=== PATIENT | female | born 1930 | race Caucasian/White ===

== ENCOUNTER → 2016-07-06 | Outpatient (CLI) | payer MEDICARE ==
[~2016-07-06] MED LIST: ATOR40TA2 PO; CITA10TA4; CLPD75T; FURO20TA4 PO; LOSA1TAB69 PO; METO25TA60 PO; MTP50T PO; TOLT2TAB5 PO; TOLTA4 PO
[2016-07-06 15:12] LABS: ALBUMIN 4.5 g/dL (3.4-5.0); ANION GAP 17.3 MEQ/L (3-15); CALCULATED IONIZED CALCIUM 3.8 mg/dL (3.8-4.6); MAGNESIUM* 1.9 mg/dL (1.6-2.3); TOTAL PROTEIN 8.3 g/dL (6.4-8.5)
== END ==
LOC: LAB 14:35
PROVIDERS: ATTEND Family Medicine
DX: R79.89 Other specified abnormal findings of blood chemistry (principal); E83.40 Disorders of magnesium metabolism, unspecified
CPT/HCPCS: 36415; 80053; 83735